=== PATIENT | female | born 1995 | race Caucasian/White ===

== ENCOUNTER 2017-03-04 09:05 | Inpatient (IN) | payer MEDICAID ==
[~2017-03-04] VITALS: Ht 157.5 cm; Wt 70.0 kg
[~2017-03-04 09:05] MED LIST: HYDR-3498 PO
[2017-03-04 09:52] VITALS: BP 115/67; PULSE 69; RESP 18; Ht 157.5 cm; Wt 70.0 kg
[2017-03-04] MEDS ORDERED: METHYLERGONOVINE 0.2 MG INJ IM PRN ×2 (10:00→18:30)
[2017-03-04] MEDS ORDERED: CEFAZOLIN 2 GM/50 ML (PMX) 50 ML IV SCH (10:00)
[2017-03-04] MEDS ORDERED: MISOPROSTOL 200 MCG TAB PR PRN ×2 (10:00→18:30)
[2017-03-04] MEDS ORDERED: OXYTOCIN 30 UNITS/LR 500 ML IV PRN ×2 (10:00→18:30)
[2017-03-04] MEDS ORDERED: CARBOPROST 250 MCG INJ IM PRN ×2 (10:00→18:30)
[2017-03-04] MEDS: LACTATED RINGER'S 1,000 ML IV SCH ×2 (10:48→12:22)
[2017-03-04 10:58] LABS: ABNORMAL IP MESSAGE 1; BASOPHILS % 0.3 % (0.0-2.0); HEMATOCRIT 36.6 % (37.0-47.0); LYMPHOCYTES % 30.2 % (15.0-51.0); MEAN CORPUSCULAR HEMOGLOBIN 28.3 pg (29.0-33.0); MEAN CORPUSCULAR HGB CONC 32.8 g/dl (32.0-37.0); MEAN CORPUSCULAR VOLUME 86.3 fl (82.0-101.0); MEAN PLATELET VOLUME 13.3 fl (7.4-10.4); MONOCYTE # 0.7 10^3/ul (0.3-0.9); NEUTROPHIL # 3.9 10^3/ul (1.6-7.5); NEUTROPHILS % 58.9 % (39.0-77.0); PLATELET COUNT 158 10^3/UL (140-415); RED BLOOD COUNT 4.24 10^6/ul (4.20-5.40); RED CELL DISTRIBUTION WIDTH 14.2 % (11.5-14.5); WHITE BLOOD COUNT 6.6 10^3/ul (4.8-10.8)
[2017-03-04] MEDS ORDERED: PREN-17 PO (10:58)
[2017-03-04 11:00] LABS: POSITIVE DIFF @See below
[2017-03-04 11:35] LABS: PARTIAL THROMBOPLASTIN TIME 36.1 Sec (25.0-35.0)
[2017-03-04 12:16] LABS: INR 0.92; PROTIME 12.4 Sec (12.2-14.2)
[2017-03-04] MEDS ORDERED: FENTAnyl 50 MCG/ML VIAL ONE (14:21)
[2017-03-04] MEDS ORDERED: morphine SULFATE/PF (10 MG/10 ML) INJ ONE (14:21)
--- NOTE | 2017-03-04 14:24 | HP ---
Date/Time of Note Date/Time of Note DATE: 03/04/17 TIME: 14:15 OB - History Hx of Present Free Text/Dictation 21 years old female 0101 admitted to [facility] at 40 weeks and 3 days history of previous section with EDC March 01, 2017 Chief Complaint: 40 weeks 3 days history of previous admitted to undergo Estimated Due Date: Mar 01, 2017 : 3 Para: 1 Care: Good Care Ultrasounds: Normal mid trimester US Obstetrical Complications: None Medical Complications: None Past Family/Social History * Past Medical, Surgical, Family and Obstetric Histories reviewed from chart. Rubella: immune RPR/VDRL: Negative GBS Status: Negative HBsAG: Negative OB Admission Exam Vital Signs Vital Signs Vital Signs Date Time Temp Pulse Resp B/P Pulse Ox O2 Delivery O2 Flow Rate FiO2 03/04/17 09:52 97.6 69 18 115/67 Room Air Physical Exam HEENT: WNL Heart: Rhythm Normal Abdomen: WNL Extremities: Normal Reflexes: Normal Cervical Dilatation: None Station: -3 Membranes: Intact Heart Rate: 130's Accelerations: Accelerations Present Decelerations: No Decelerations Contractions on Admission: None Last 72 hours Lab Results CBC & BMP 03/04/17 10:24 OB Assessment/Plan Plan: Other (21 years old history of previous 40 weeks and 3 days admitted to undergo repeat section complication of the surgery including but not limited to bowel bladder injury infection hemorrhage and hematoma and she is willing to go ahead with this procedure) SAVANNAH ROSSI MD Mar 04, 2017 14:24
[2017-03-04] MEDS ORDERED: PHENYLephrine (100 MCG/ML) 5ML SYG ONE (14:31)
[2017-03-04] MEDS ORDERED: ONDANSETRON 4 MG INJ ONE (14:32)
[2017-03-04] MEDS ORDERED: DEXAMETHASONE 4 MG/ML 1 ML INJ ONE (14:32)
[2017-03-04] MEDS ORDERED: NALOXONE (0.4 MG/ML) INJ IV PRN (15:30)
[2017-03-04] MEDS ORDERED: ONDANSETRON 4 MG INJ IV PRN (15:30)
[2017-03-04] MEDS ORDERED: HYDROmorphONE 1 MG/ML SYG IV PRN ×2 (15:30)
[2017-03-04] MEDS ORDERED: DIPHENHYDRAMINE 50 MG INJ IV PRN (15:30)
[2017-03-04] MEDS ORDERED: ZOLPIDEM 5 MG TAB PO PRN (15:30)
[2017-03-04] MEDS ORDERED: NALBUPHINE HCL (10 MG/1 ML) INJ IV PRN (15:30)
[2017-03-04] MEDS: OXYTOCIN 30 UNITS/LR 500 ML IV SCH ×3 (16:16→22:10)
[2017-03-04] MEDS: KETOROLAC 30 MG INJ IV PRN (16:25)
--- NOTE | 2017-03-04 16:31 | OPR ---
Operative Report Planned Procedure Free Text/Dictation 21 years old female previous at 40 weeks and 3 days of previous Procedure date Mar 04, 2017 Procedure(s) Repeat section Performed by see signature line Assisting provider: UZIEL COUGHLIN MD Anesthesiologist: ANIKA DEVLIN DO Pre-procedure diagnosis 40 weeks 3 weeks history previous Anesthesia Type: spinal Procedure Description Under satisfactory [] anesthesia, the patient was prepped and draped and placed in a supine position, tilted to the left. Pfannenstiel incision was made, carried through the subcutaneous tissue. Bleeders brought under control with electrocautery. Fascia incised to the length of the incision. Rectus muscles from the fascia, divided midline. Peritoneum exposed, entered through a transverse incision. Exploration of abdomen revealed gravid uterus. Normal- appearing tubes and ovaries bladder flap was developed. Transverse incision was made in the lower segment of the uterus. Amniotic sac ruptured. [There] amniotic fluid noted. Live baby boy was delivered from unengaged vertex Nasal oropharyngeal suction was performed. baby handed to the team for immediate attention patient received 20 units of Pitocin. placenta was delivered manually intact. Uterine cavity was cleaned with wet sponge and drainage established. Uterus closed in 2 layers using Vicryl No. 1 in continuous fashion. Peritoneal cavity irrigated with warm saline. Sponge, needle and instrument count reported to be correct. Abdominal peritoneum closed with [0 chromic catgut] continuously. Rectus muscle approximated with 0 chromic catgut []. Fascia closed with 1 PDS [], cutaneous tissue submitted with few interrupted 2-0 chromic gut. Skin closed with N SORB estimated blood loss [600] mL. Urine bag contained [200]mL of clear urine and tolerated procedure well transferred to recovery room in good condition Post-Procedure Findings: Live Baby BOY 8/9 Estimated blood loss: other (600) Specimen(s): no Grafts/Implants: no Complication(s): no Pt Condition post procedure: stable Physician Certification I, the undersigned physician, hereby certify that I have discussed the procedure described in this consent form with this patient (or the patient's legal benefits representative), including: * The risk and benefits of the procedure; * Any adverse reactions that may reasonably be expected to occur; * Any alternative efficacious methods of treatment which may be medically viable ; * The potential problems that may occur during recuperation; * Potential for blood transfusion and associated risks/benefits; and * Any research or economic interest I may have regarding this treatment. I further certify that the patient/legally responsible person was encouraged to ask question and that all questions were answered. SAVANNAH ROSSI MD Mar 04, 2017 16:31
[2017-03-04] MEDS ORDERED: HYDROCODONE/APAP (5/325) TAB PO PRN ×2 (18:30)
[2017-03-04] MEDS ORDERED: OXYCODONE/ACETAMINOPHEN (5/325) TAB PO PRN ×2 (18:30)
[2017-03-04] MEDS ORDERED: LANOLIN 7 GM TUBE TOP PRN (18:30)
[2017-03-04] MEDS ORDERED: CEFAZOLIN 1 GM/50 ML (PMX) 50 ML IVPB SCH (18:30)
[2017-03-04 20:00] VITALS: BP 129/61; PULSE 58; RESP 18
[2017-03-04] MEDS ORDERED: INFLUENZA VIRUS VACCINE 0.5 ML (DISPENSING) IM* ONE (20:00)
[2017-03-05] VITALS: BP 107/56; PULSE 57; RESP 18
[2017-03-05] MEDS: OXYTOCIN 30 UNITS/LR 500 ML IV SCH ×5 (02:09→14:09)
[2017-03-05 04:00] VITALS: BP 117/56; PULSE 58; RESP 18
[2017-03-05] MEDS: LACTATED RINGER'S 1,000 ML IV SCH ×2 (06:01→13:30)
[2017-03-05 09:52] LABS: BASOPHILS % 0.3 % (0.0-2.0); EOSINOPHILS % 0.1 % (0.0-7.0); HEMATOCRIT 32.8 % (37.0-47.0); HEMOGLOBIN 10.5 g/dl (12.0-16.0); LYMPHOCYTES # 2.7 10^3/ul (0.8-2.9); LYMPHOCYTES % 26.4 % (15.0-51.0); MEAN CORPUSCULAR HEMOGLOBIN 27.8 pg (29.0-33.0); MEAN CORPUSCULAR VOLUME 86.8 fl (82.0-101.0); MEAN PLATELET VOLUME 12.7 fl (7.4-10.4); MONOCYTE # 1.1 10^3/ul (0.3-0.9); MONOCYTES % 10.9 % (0.0-11.0); NEUTROPHIL # 6.4 10^3/ul (1.6-7.5); NEUTROPHILS % 61.6 % (39.0-77.0); PLATELET COUNT 132 10^3/UL (140-415); RED BLOOD COUNT 3.78 10^6/ul (4.20-5.40); RED CELL DISTRIBUTION WIDTH 14.3 % (11.5-14.5); WHITE BLOOD COUNT 10.4 10^3/ul (4.8-10.8)
[2017-03-05] MEDS: SENNA/DOCUSATE NA (8.6MG/50MG) TAB PO SCH ×2 (10:01→20:40)
[2017-03-05] MEDS: KETOROLAC 30 MG INJ IV PRN (10:01)
--- NOTE | 2017-03-05 11:01 | QN ---
Documentation Comment Post day 1 Afebrile Vital signs are stable Abdomen soft Incision dry Bowel sounds present Lochia moderate, extremities normal Ambulation encouraged SAVANNAH ROSSI MD Mar 05, 2017 11:01
[2017-03-05] MEDS: IBUPROFEN 600 MG TAB PO SCH ×2 (17:42→23:32)
[2017-03-05 20:00] VITALS: BP 99/58; PULSE 66; RESP 18
[2017-03-06 04:00] VITALS: BP 119/68; PULSE 56; RESP 18
[2017-03-06] MEDS: IBUPROFEN 600 MG TAB PO SCH ×4 (05:39→23:34)
[2017-03-06 08:00] VITALS: BP 99/54; PULSE 54; RESP 18
[2017-03-06] MEDS: SENNA/DOCUSATE NA (8.6MG/50MG) TAB PO SCH ×2 (09:35→20:59)
--- NOTE | 2017-03-06 09:50 | QN ---
Documentation Comment Post day 2 Afebrile Vital signs are stable Abdomen soft, incision dry, bowel sounds present, no bowel movement,Fleets enema recommended Extremities negative Ambulation encouraged SAVANNAH ROSSI MD Mar 06, 2017 09:50
[2017-03-06 16:00] VITALS: BP 110/58; PULSE 70; RESP 18
[2017-03-06 19:45] VITALS: BP 129/68; PULSE 55; RESP 18
[2017-03-07 04:30] VITALS: BP 125/59; PULSE 54; RESP 18
[2017-03-07] MEDS: IBUPROFEN 600 MG TAB PO SCH ×2 (05:46→11:43)
[2017-03-07 08:30] VITALS: BP 109/67; PULSE 56; RESP 18
[2017-03-07] MEDS ORDERED: DIPHTH/TET/ACEL PERTUSS (ADULT) 0.5 ML VIAL IM* ONE (09:00)
[2017-03-07] MEDS: SENNA/DOCUSATE NA (8.6MG/50MG) TAB PO SCH (09:00)
--- NOTE | 2017-03-07 10:38 | PD.PPDC ---
RELIEF CHARGE NURSE Discharge Instruction Condition Patient Condition: Good Diet Diet: Resume Regular Diet Activity/Restrictions Activity: Normal Activity May Shower Restrictions: No Exercising No Lifting No Driving No Sexual Activity Nothing in the Vagina No [place] No Tampons, douche Wound/Drain Care Instructions Wound/Drain Care Instructions: Remove Steri Strips in 1 week Follow-up Follow-up with Physician: 1, Week/Weeks Provider Information: Post instructions given recommended to make appointment to be seen at the clinic in 1 week Return to clinic for [employer] Instructions: Fever greater than 101 Chills Worsening abdominal pain Excessive Vaginal Bleeding More than 2 pads per hour Unable to tolerate diet OB Instructions: Breast Tenderness Depression Blurried Vision Headache Surgical Instructions: Incisional Drainage Incisional Redness SAVANNAH ROSSI MD Mar 07, 2017 10:38
--- NOTE | 2017-03-07 10:45 | DS ---
Date/Time of Note Date/Time of Note DATE: 03/07/17 TIME: 10:40 Discharge Summary Admission/Discharge Info Admit Date/Time Mar 04, 2017 at 09:05 Discharge Date/Time March 07, 2017 at 11 AM Discharge Diagnosis Post date 3 Patient Condition: Good Procedures Repeat Hx of Present Illness 39 weeks plus gestation history of previous Hospital Course Post satisfactory recovery, good condition Home Meds Reported Medications Vit No.78/Iron/FA (Prenatabs FA Tablet) 1 Each Tablet, 1 EACH PO, TAB 03/04/17 Hydrocodone Bit-Acetaminophen* (Randolph*) 1 Tab Tab, 1 TAB PO Q4 04/07/13 Follow-up Plan Post instructions given recommended patient to make appointment to be seen at the clinic in 1 week Primary Care Provider Care Physician No Primary Time spent on discharge: < 30 minutes SAVANNAH ROSSI MD Mar 07, 2017 10:45
== END 2017-03-07 15:30 | disposition home or self-care (01) | DRG 766 ==
LOC: L-D 09:05 → PP1 19:40
PROVIDERS: ADMIT Obstetrics & Gynecology; ATTEND Obstetrics & Gynecology
PROC: 3E0P3VZ Introduction of Hormone into Female Reproductive, Percutaneous Approach (ICD-10-PCS; 2017-03-04)
PROC: 10D00Z1 Extraction of Products of Conception, Low, Open Approach (ICD-10-PCS; principal; 2017-03-04 12:30)
DX: O34.211 Maternal care for low transverse scar from previous cesarean delivery (principal); O48.0 Post-term pregnancy; Z37.0 Single live birth; Z3A.40 40 weeks gestation of pregnancy
CPT/HCPCS: 85025; 85610; 85730; 86592; 86850; 86900; 86901; 87340; 90686; 90715; 94760; 99464; J0690; J1100; J1200; J1885; J2274; J2300; J2370; J2405; J2590; J3010; J7120

== ENCOUNTER 2018-08-25 16:44 | Emergency (ER) | payer MEDICAID ==
[~2018-08-25] VITALS: Ht 157.5 cm; Wt 67.8 kg
[~2018-08-25 16:44] MED LIST changes: +PREN-17 PO
[2018-08-25 16:50] VITALS: Ht 157.5 cm; Wt 67.8 kg
[2018-08-25] MEDS ORDERED: KETOROLAC 60 MG INJ IM STA (20:48)
--- NOTE | 2018-08-25 20:57 | ERD ---
ER Documentation Chief Complaint Chief Complaint Left knee pain and swelling x 2 days. Pain after standing HPI This is a 23-year-old female presents ED with left anterior knee pain times 2 days. Patient states that 2 days ago when she went from sitting to standing position she started experiencing left anterior medial knee pain. Patient admits to some mild swelling and pain as well as some painful range of motion. Denies tingling, numbness, lack sensation, fever, chills, decreased range of motion, and all other symptoms. No drug use. No known drug allergies. Denies calf tenderness. Patient denies recent surgery/immobilization, smoking, prior hx of DVT, coagulopathy, hx of cancer, exogenous estrogen use. ROS All systems reviewed and are negative except as per history of present illness. Medications Home Meds Reported Medications Vit No.78/Iron/FA (Prenatabs FA Tablet) 1 Each Tablet, 1 EACH PO, TAB 03/04/17 Hydrocodone Bit-Acetaminophen* (Artesian*) 1 Tab Tab, 1 TAB PO Q4 04/07/13 Allergies Allergies: Coded Allergies: No Known Allergy (Unverified , 04/08/13) PMhx/Soc Medical and Surgical Hx: pt denies Medical Hx History of Surgery: Yes (CSECTION APR 02, 2013) Anesthesia Reaction: No Hx Neurological Disorder: No Hx Respiratory Disorders: No Hx Cardiac Disorders: No Hx Psychiatric Problems: No Hx Miscellaneous Medical Probl: No Hx Alcohol Use: No Hx Substance Use: No Hx Tobacco Use: No Smoking Status: Never smoker FmHx Family History: No diabetes Physical Exam Vitals Vital Signs Date Temp Pulse Resp B/P (MAP) Pulse Ox O2 O2 Flow FiO2 Time Delivery Rate 08/25/18 97.5 66 18 130/58 100 16:50 (82) Physical Exam Const: No acute distress Head: Atraumatic Eyes: Normal Conjunctiva ENT: Normal External Ears, Nose and Mouth. Neck: Full range of motion. No meningismus. Resp: Clear to auscultation bilaterally Cardio: Regular rate and rhythm, no murmurs Ext: No cyanosis, or edema Lower Extremity - left Skin: No laceration, obvious swelling or evidence of external trauma Compartments: Soft Motor: Full active range of motion hip/knee/ankle/foot Sensation: Intact to light touch FDWS/MF/LF/P surfaces. Bones: Nontender pelvis/knee/proximal tibia/ malleoli/foot Joints: No effusion or laxity no calf sizeSize discrepancy, no calf tenderness Neur: Awake and alert Psych: Normal Mood and Affect Results 24 hrs Laboratory Tests Test 08/25/18 20:55 POC Beta HCG, Qualitative NEGATIVE Current Medications Medications Dose Sig/Nidia Start Time Status Last (Trade) Ordered Route PRN Stop Time Admin Dose Reason Admin Ketorolac 60 mg ONCE STAT 08/25/18 DC 08/25/18 Tromethamine IM 20:48 21:03 (Toradol) 08/25/18 20:50 Procedures/MDM EKG, MONITORS, & DIAGNOSTIC IMAGING: [place] [id number] Radiology Main Line: [phone] DIAGNOSTIC IMAGING REPORT Patient: MUNIR NAGY : 1995 Age: 23 Sex: F MR #: [id number] DOS: 08/25/182047 Ordering MD: NIA JO PA-C Location: [facility] Room/Bed: PROCEDURE: Left knee series CLINICAL INDICATION: Pain TECHNIQUE: AP, oblique, and lateral views of the left knee COMPARISON: None FINDINGS: The osseous structures are intact with no evidence of fracture or subluxation. No joint effusion is evident. The soft tissues are normal in appearance. IMPRESSION: No acute findings RPTAT:HAGL Physician Alexandro Date Time Electronically viewed and signed by Physician Alexandro on 08/25/2018 22:27 RL/ CC: NIA JO PA-C [id number] ER COURSE: The patient was given IM Toradol The medication was well tolerated and the patient reports improvement in symptoms. The patient was stable throughout ED course. I kept the patient and/or family informed of laboratory and diagnostic imaging results throughout the emergency room course. The patient was promptly evaluated and a treatment plan was devised based on H&P and other data. This plan was discussed with the patient who agreed and had no further questions or concerns prior to discharge. MEDICAL DECISION MAKING: This is a 23-year-old female presents ED with left anterior medial knee pain ti mes 2 days. Pain started when patient went from a sitting to standing position. This likely could be a muscle strain. X-rays are unremarkable. there is no swelling and patient is non ttp. Advised patient to ice and use ibuprofen. Pain continues advised patient follow-up with loss mitigation specialist. History and physical examination other data not consistent with emergent processes including but not limited to fracture, DVT, dislocation, tendon rupture, ischemia, neurovascular injury, compartment syndrome, septic joint, avascular necrosis, osteomyelitis, necrotizing fasciitis, septic joint, septic arthritis, or other emergent conditions. Patient's vitals are stable and can be managed outpatient with close follow-up. Advised patient to follow-up with primary care in the next 48 hours. Return to ED with any worsening symptoms. DISPOSITION PLAN: We discussed follow up with the patient's primary care doctor within 24 to 48 hours. Patient counseled regarding my diagnostic impression and care plan. Prior to discharge all questions answered. Pt agrees with treatment plan and understands strict return precautions. Precautionary instructions provided including instructions to return to the ER if not improving or for any worsening or changing symptoms or concerns. SPECIALIST FOLLOW UP RECOMMENDED: None Patient has been advised to follow up with primary care in 1-2 days. Disclaimer: Inadvertent spelling and grammatical errors are likely due to EHR/dictation software use and do not reflect on the overall quality of patient care. Also, please note that the electronic time recorded on this note does not necessarily reflect the actual time of the patient encounter. Departure Diagnosis: Primary Impression: Knee pain Chronicity: acute Laterality: left Qualified Codes: M25.562 - Pain in left knee Condition: Stable Patient Instructions: Knee Sprain, R.I.C.E. Referrals: [facility] Additional Instructions: Patient advised to return to the ED immediately for new or worsening symptoms. Patient advised to follow up with primary care provider in the next 24-48 hours. Patient verbalized understanding and agrees with treatment plan and course of action. If patient has no primary care they may follow up with one of the community clinics listed on the following page or one of the options listed below [address] [address] or [facility] [address] [place] [address] or [facility] [address] [place] [address] NIA JO PA-C Aug 25, 2018 20:57
[2018-08-25] MEDS ORDERED: IBUP-1542 PO (22:40)
[2018-08-25 22:45] VITALS: BP 115/58; PULSE 67; RESP 18
== END 2018-08-25 22:50 | disposition home or self-care (01) ==
LOC: FTE 16:44
DX: M25.562 Pain in left knee (principal)
CPT/HCPCS: 73562; 81025; 96372; J1885; Z7502